=== PATIENT | female | born 1985 | race Two or more races ===

== ENCOUNTER 2017-02-24 12:36 | Emergency (ER) | payer MEDICAID ==
[2017-02-24 12:44] VITALS: BP 117/68; RESP 18; TEMP 98.6; O2SAT 96
--- NOTE | 2017-02-24 12:48 | EDPHY ---
H & P Stated Complaint: Bilat ear pain (worse L side) x 1 day. Denies fever. Time Seen by Provider: 02/24/17 12:42 HPI/ROS: CHIEF COMPLAINT:Bilateral ear pain HISTORY OF PRESENT ILLNESS: patient is a 31-year-old female who comes to the emergency department complaining of bilateral ear pain for the last 4 days. She has not had any drainage. She has not had a fever. She has not had sinus congestion or sore throat. No Headache. REVIEW OF SYSTEMS: Constitutional: denies: chills, fever, recent illness, recent injury EENTM: See HPI Respiratory: denies: cough, shortness of breath Cardiac: denies: chest pain, irregular heart rate, lightheadedness, palpitations Gastrointestinal/Abdominal: denies: abdominal pain, diarrhea, nausea, vomiting, blood streaked stools Genitourinary: denies: dysuria, frequency, hematuria, pain Musculoskeletal: denies: joint pain, muscle pain Skin: denies: lesions, rash, jaundice, bruising Neurological: denies: headache, numbness, paresthesia, tingling, dizziness, weakness Hematologic/Lymphatic: denies: blood clots, easy bleeding, easy bruising Immunologic/allergic: denies: HIV/AIDS, transplant EXAM: GENERAL: Well-appearing, well-nourished and in no acute distress. HEAD: Atraumatic, normocephalic. EYES: Pupils equal round and reactive to light, extraocular movements intact, sclera anicteric, conjunctiva are normal. ENT: TMs with mild purulent effusion, no erythema possible mild erythema to canal of left ear, nares patent, oropharynx clear without exudates. Moist mucous membranes. NECK: Normal range of motion, supple without lymphadenopathy or JVD. LUNGS: Breath sounds clear to auscultation bilaterally and equal. No wheezes rales or rhonchi. HEART: Regular rate and rhythm without murmurs, rubs or gallops. ABDOMEN: Soft, nontender, normoactive bowel sounds. No guarding, no rebound. No masses appreciated. BACK: No CVA tenderness, no spinal tenderness, step-offs or deformities EXTREMITIES: Normal range of motion, no pitting or edema. No clubbing or cyanosis. NEUROLOGICAL: Cranial nerves II through XII grossly intact. Normal speech, normal gait. 5/5 strength, normal movement in all extremities, normal sensation PSYCH: Normal mood, normal affect. SKIN: Warm, dry, normal turgor, no visible rashes or lesions. Source: Patient Exam Limitations: No limitations - Personal History LMP (Females 10-55): 1-7 Days Ago Current Tetanus Diphtheria and Acellular Pertussis (TDAP): Yes Tetanus Vaccine Date: within 10 years - Medical/Surgical History Hx Asthma: No Hx Chronic Respiratory Disease: No Hx Diabetes: No Hx Cardiac Disease: No Hx Renal Disease: No Hx Cirrhosis: No Hx Alcoholism: No Hx HIV/AIDS: No Hx Splenectomy or Spleen Trauma: No Other PMH: Night terrors, PTSD, fibromyalgia, Tonsillectomy - Family History Significant Family History: No pertinent family hx - Social History Smoking Status: Current every day smoker Alcohol Use: Sober Drug Use: None Constitutional: Initial Vital Signs Temperature (C) 37 C 02/24/17 12:37 Heart Rate 120 H 02/24/17 12:37 Respiratory Rate 18 02/24/17 12:37 Blood Pressure 117/68 02/24/17 12:37 O2 Sat (%) 96 02/24/17 12:37 O2 Delivery Mode Room Air Allergies/Adverse Reactions: No Known Allergies Allergy (Verified 02/24/17 12:44) Home Medications: Medication Instructions Recorded AZITHROMYCIN [Z-PACK] 250 mg PO DAILY #6 tab 02/24/17 Effexor 02/24/17 Klonopin 02/24/17 Lyrica 02/24/17 Multivitamin 02/24/17 Prazosin HCl 02/24/17 Seroquel 02/24/17 Medical Decision Making ED Course/Re-evaluation: the patient has a very mild otitis media possibly some otitis externa. I will start her on antibiotics and encouraged Afrin for decongestants. Encouraged her to continue taking ibuprofen. She did ask about stronger pain medication but I told her would not prescribe narcotics. Differential Diagnosis: Partial list of the Differential diagnosis considered include but were not limited to; Otitis media, otitis externa, sinusitis, upper respiratory tract infection and although unlikely based on the history and physical exam, I also considered pneumonia, meningitis, sepsis. Departure - Departure Disposition: Home, Routine, Self-Care Clinical Impression: Acute otitis media Qualifiers: Otitis media type: suppurative Laterality: bilateral Recurrence: not specified as recurrent Spontaneous tympanic membrane rupture: without spontaneous rupture Qualified Code(s): H66.003 - Acute suppurative otitis media without spontaneous rupture of ear drum, bilateral Condition: Fair Instructions: Otitis Media (ED) Additional Instructions: Use Afrin as a decongestant as we discussed. Referrals: RACHEL FIGUEROA [Other] - As per Instructions Prescriptions: AZITHROMYCIN [Z-PACK] 250 mg PO DAILY #6 tab
[2017-02-24 12:49] VITALS: PULSE 118
== END 2017-02-24 12:50 | disposition home or self-care (01) ==
LOC: CED 12:36
DX: H66.003 Acute suppurative otitis media without spontaneous rupture of ear drum, bilateral (principal); F17.200 Nicotine dependence, unspecified, uncomplicated

== ENCOUNTER 2017-03-02 11:19 | Emergency (ER) | payer MEDICAID ==
[2017-03-02] MEDS ORDERED: NS 1,000 ML IV ONE (11:27)
[2017-03-02 11:31] VITALS: TEMP 99.3
--- NOTE | 2017-03-02 11:47 | EDPHY ---
H & P Time Seen by Provider: 03/02/17 11:29 HPI/ROS: HPI Vaginal bleeding, lower abdominal cramping. 31-year-old female by private vehicle. . Currently sexually active. Last menstrual period was 2 weeks ago. She reports vaginal bleeding since yesterday. She reports she has gone through 6 tampons in that time. She reports that she has had lower abdominal cramping associated with this. She has taken 2400 mg of ibuprofen since yesterday as well. She called the nurse hotline today was told to come to the emergency department for evaluation. No fever. No back pain. She states that her periods are usually regular. No other complaints. ROS: Constitutional: No fever, no chills. No weakness. Eyes: No discharge. No changes in vision. ENT: No sore throat. No nasal congestion or rhinorrhea. Respiratory: No cough. No shortness of breath. Cardiac: No chest pain, no palpitations. Gastrointestinal: As above, no vomiting, no diarrhea. Genitourinary: No hematuria. No dysuria or increased frequency with urination. As above. Musculoskeletal: No back pain. No neck pain. No myalgias or arthralgias. Skin: No rashes. Neurological: No headache. No focal weakness or altered sensation. Past medical history: Night terrors, PTSD, anxiety, fibromyalgia, tonsillectomy. Social history: Physical Exam: General Appearance: Alert, no distress. This patient is responding to questions appropriately and in full sentences. This patient appears well- hydrated and well-nourished. Eyes: Pupils equal and round no pallor or injection. No lid edema, erythema or injection. Respiratory: There are no retractions, lungs are clear to auscultation with good air movement bilaterally. Cardiovascular: Regular rate and rhythm. No murmur. Gastrointestinal: Abdomen is soft with mild vague tenderness across her lower abdomen on palpation, no masses, bowel sounds normal. No focal tenderness at McBurney's point. No Walters sign. Neurological: Motor sensory function is grossly intact. Cranial nerves are normal. Gait is normal. Skin: Warm and dry, no rashes. Musculoskeletal: Neck is supple and nontender. Extremities are symmetrical. All joints range without pain or impingement. Psychiatric: No agitation. No depression. Database: EKG: Imaging: Pelvic ultrasound: Unremarkable study except for a 2.4 cm right ovarian cyst. No evidence of torsion. The endometrium is unremarkable. No other pathology. No free fluid. Results were discussed with staff radiologist Dr. Wayne Whitmore. Procedures: Emergency department course: IV placed. She was placed on a monitor. Vital signs reviewed and are normal. Urine specimen obtained. She was sent for a pelvic ultrasound. Blood work and urinalysis reviewed and are unremarkable. Patient is not significantly anemic. She was given 0.125 mg of Levsin for her cramping. I explained to her that because of her pain contract I could not give her narcotic pain medications. Repeat abdominal exam she is soft, nontender and nondistended. Plan will be to have her follow up with her primary care physician OBGYN on Monday for re-evaluation. I have discussed proper ibuprofen dosing. Return to emergency department precautions reviewed. All of her questions were answered. She feels comfortable going home. She was discharged in good condition. Differential Diagnosis: The differential diagnosis on this patient includes but is not limited to dysfunctional uterine bleeding, ectopic , threatened miscarriage, uterine fibroids. This represents a partial list of diagnoses considered. These considerations are based on history, physical exam, past history, reassessment and diagnostic testing. Smoking Status: Current every day smoker Constitutional: Initial Vital Signs Temperature (C) 37.4 C 03/02/17 11:29 Heart Rate 93 03/02/17 11:29 Respiratory Rate 18 03/02/17 11:29 Blood Pressure 116/85 H 03/02/17 11:29 O2 Sat (%) 95 03/02/17 11:29 O2 Delivery Mode Room Air Allergies/Adverse Reactions: No Known Allergies Allergy (Verified 03/02/17 11:27) Home Medications: Medication Instructions Recorded Effexor 02/24/17 Klonopin 02/24/17 Lyrica 02/24/17 Multivitamin 02/24/17 Prazosin HCl 02/24/17 Seroquel 02/24/17 Medical Decision Making - Diagnostics Imaging Results: Imaging Impressions Pelvic/Renal Ultrasound 03/02/17 11:28 Impression: 1. Normal appearance of the uterus (including the myometrium and endometrium). 2. There is a mildly complex 2.4 cm right ovarian cyst, with no evidence of torsion, but a trace amount of free fluid in the pelvic cul-de-sac. Findings were discussed with Bob Layne MD at 12:07, on 03/02/2017. . - Data Points Laboratory Results: Laboratory Results 03/02/17 11:25 03/02/17 03/02/17 03/02/17 11:25 11:25 11:25 WBC 4.78 10^3/uL 10^3/uL (3.80-9.50) RBC 4.85 10^6/uL 10^6/uL (4.18-5.33) Hgb 15.2 g/dL g/dL (12.6-16.3) Hct 43.1 % % (38.0-47.0) MCV 88.9 fL fL (81.5-99.8) MCH 31.3 pg pg (27.9-34.1) MCHC 35.3 g/dL g/dL (32.4-36.7) RDW 14.1 % % (11.5-15.2) Plt Count 241 10^3/uL 10^3/uL (150-400) MPV 9.8 fL fL (8.7-11.7) Neut % (Auto) 52.1 % % (39.3-74.2) Lymph % (Auto) 40.0 % % (15.0-45.0) [place] % (Auto) 7.1 % % (4.5-13.0) Eos % (Auto) 0.0 % L % (0.6-7.6) Baso % (Auto) 0.4 % % (0.3-1.7) Nucleat RBC Rel Count 0.0 % % (0.0-0.2) Absolute Neuts (auto) 2.49 10^3/uL 10^3/uL (1.70-6.50) Absolute Lymphs (auto) 1.91 10^3/uL 10^3/uL (1.00-3.00) Absolute Monos (auto) 0.34 10^3/uL 10^3/uL (0.30-0.80) Absolute Eos (auto) 0.00 10^3/uL L 10^3/uL (0.03-0.40) Absolute Basos (auto) 0.02 10^3/uL 10^3/uL (0.02-0.10) Absolute Nucleated RBC 0.00 10^3/uL 10^3/uL (0-0.01) Immature Gran % 0.4 % % (0.0-1.1) Immature Gran # 0.02 10^3/uL 10^3/uL (0.00-0.10) Beta HCG, Qual NEGATIVE Urine Color YELLOW Urine Appearance CLEAR Urine pH 7.0 (5.0-7.5) Ur Specific [place] 1.010 (1.002-1.030) Urine Protein NEGATIVE (NEGATIVE) Urine Ketones NEGATIVE (NEGATIVE) Urine Blood 3+ H (NEGATIVE) Urine Nitrate NEGATIVE (NEGATIVE) Urine Bilirubin NEGATIVE (NEGATIVE) Urine Urobilinogen 0.2 EU EU (0.2-1.0) Ur Leukocyte Esterase NEGATIVE (NEGATIVE) Urine RBC 5-10 /hpf H /hpf (0-3) Urine WBC 1-3 /hpf /hpf (0-3) Ur Epithelial Cells 2+ /lpf H /lpf (NONE-1+) Urine Bacteria 1+ /hpf H /hpf (NONE SEEN) Urine Glucose NEGATIVE (NEGATIVE) Medications Given: Discontinued Medications Hyoscyamine Sulfate (Levsin, Hyomax-Sl) 0.125 mg PO EDNOW ONE Stop: 03/02/17 12:07 Last Admin: 03/02/17 12:10 Dose: 0.125 mg Sodium Chloride (Ns) 1,000 mls @ 0 mls/hr IV ONCE ONE; Wide Open PRN Reason: Protocol Stop: 03/02/17 11:28 Last Admin: 03/02/17 11:30 Dose: 1,000 mls Departure - Departure Disposition: Home, Routine, Self-Care Clinical Impression: Dysfunctional uterine bleeding Condition: Good Instructions: Dysfunctional Uterine Bleeding (ED) Additional Instructions: Read and follow provided instructions. Follow-up with your primary care physician or OBGYN in 1-2 days for re- evaluation. Ibuprofen dosin mg every 6 hours with meals for the next 3 days only. Return to the emergency department for worsening bleeding, pain, fever, vomiting or other serious concerns. Referrals: [facility] [Other] - As per Instructions Maylin Martinez MD [Medical Doctor] - As per Instructions
[2017-03-02 11:50] LABS: % IMMATURE GRANULYOCYTES 0.4 % (0.0-1.1); ABSOLUTE IMMATURE GRANULOCYTES 0.02 10^3/uL (0.00-0.10); ADD DIFF? NO; ADD MORPH? NO; ADD SCAN? NO; ATYPICAL LYMPHOCYTE FLAG 20 (0-99); FRAGMENT RBC FLAG 0 (0-99); HEMATOCRIT 43.1 % (38.0-47.0); HEMOGLOBIN 15.2 g/dL (12.6-16.3); LEFT SHIFT FLG 0 (0-99); LIPEMIA HEMOLYSIS FLAG 90 (0-99); MEAN CELL HEMOGLOBIN 31.3 pg (27.9-34.1); MEAN CELL HEMOGLOBIN CONCENTR. 35.3 g/dL (32.4-36.7); MEAN CELL VOLUME 88.9 fL (81.5-99.8); MEAN PLATELET VOLUME 9.8 fL (8.7-11.7); PLATELET CLUMPS FLAG 0 (0-99); PLATELET COUNT 241 10^3/uL (150-400); RED BLOOD CELL COUNT 4.85 10^6/uL (4.18-5.33); RED CELL DISTRIBUTION WIDTH 14.1 % (11.5-15.2)
[2017-03-02 11:51] LABS: COLOR YELLOW; LEUKOCYTE ESTERASE,URINE NEGATIVE (NEGATIVE); NITRITE,URINE NEGATIVE (NEGATIVE)
[2017-03-02 12:03] LABS: BACTERIA 1+ /hpf (NONE SEEN)
[2017-03-02] MEDS ORDERED: HYOSCYAMINE SULFATE 0.125 MG TAB PO ONE (12:06)
[2017-03-02 12:44] VITALS: BP 100/65; PULSE 72; RESP 20; O2SAT 99
== END 2017-03-02 12:35 | disposition home or self-care (01) ==
LOC: CED 11:19
DX: N93.8 Other specified abnormal uterine and vaginal bleeding (principal); F17.200 Nicotine dependence, unspecified, uncomplicated
CPT/HCPCS: 76856-PO; 81003-PO; 81015-PO; 84703-PO; 85025-PO

== ENCOUNTER 2017-03-03 14:23 | Emergency (ER) | payer MEDICAID ==
[2017-03-03 14:33] VITALS: TEMP 98.4
[2017-03-03] MEDS ORDERED: KETOROLAC 30 MG/1 ML SDV IM ONE (14:55)
--- NOTE | 2017-03-03 15:01 | EDPHY ---
H & P Time Seen by Provider: 03/03/17 14:30 HPI/ROS: CHIEF COMPLAINT: Pelvic cramping History by patient HISTORY OF PRESENT ILLNESS: 31-year-old woman with history of fibromyalgia presents complaining of ongoing vaginal bleeding and cramping. Patient was seen for the same thing yesterday and had extensive workup that showed no evidence of , normal hemoglobin and ultrasound showed no ovarian cyst but no evidence of torsion or other pathology. Because of her fibromyalgia she is followed at a pain clinic and is not prescribed any opiates. She was recommended to take ibuprofen 600 mg 4 times a day however she says she has taken only a dose of 2 or 300 mg around noon today and that is not helping. She is also still having ongoing vaginal bleeding for which she is using pads but it is not heavy. Patient quit taking control pills 6 weeks ago and this is the 2nd episode of vaginal bleeding since she stopped those. She is wondering if we can give her some pain medicines that she can go home with. REVIEW OF SYSTEMS: As in HPI, and all other systems reviewed and are negative Smoking Status: Current every day smoker Physical Exam: General Appearance: Alert, non-ill appearing. Eyes: Pupils equal and round no pallor or injection. ENT, Mouth: Mucous membranes moist. Respiratory: Normal, effort, There are no retractions, lungs are clear to auscultation. Cardiovascular: Regular rate and rhythm. Gastrointestinal: Abdomen is soft and nontender, no masses, bowel sounds normal. Back: No CVA tenderness, no bony tenderness Neurological: Awake, alert and oriented x 3, no pronator drift, normal gait, no pronator drift Skin: Warm and dry, no rashes. Musculoskeletal: Neck is supple nontender. Extremities are symmetrical, full range of motion. Psychiatric: Patient has normal affect, there is no agitation. Constitutional: Initial Vital Signs Temperature (C) 36.9 C 03/03/17 14:25 Heart Rate 79 03/03/17 14:25 Respiratory Rate 16 03/03/17 14:25 Blood Pressure 103/63 03/03/17 14:25 O2 Sat (%) 100 03/03/17 14:25 O2 Delivery Mode Room Air Allergies/Adverse Reactions: No Known Allergies Allergy (Verified 03/03/17 14:33) Home Medications: Medication Instructions Recorded Effexor 02/24/17 Klonopin 02/24/17 Multivitamin 02/24/17 Prazosin HCl 02/24/17 Cymbalta 03/03/17 MDM/Departure - MDM Imaging: I viewed and interpreted images myself ED Course/Re-evaluation: 31-year-old woman presents complaining of ongoing menstrual cramping and vaginal bleeding after an extensive workup yesterday. Patient has been taking inadequate doses of ibuprofen. We discussed how nonsteroidal anti-inflammatory pain medicine has specific antiprostaglandin effects and that can help her. We also discussed the risks of opiates for chronic pain and conjunction with benzodiazepines that she takes regularly. I also explained that she needs to take this 600 mg 4 times a day. I offered to start her on new control pills however she declined and preferred to get this prescribed by her regular OBGYN in [place]. She was given a dose of IM ketorolac. And discharged home in stable condition. - Depart Disposition: Home, Routine, Self-Care Clinical Impression: Dysmenorrhea, unspecified Condition: Good Instructions: Dysmenorrhea (ED) Additional Instructions: You were seen by Dr. Ariadna Frank today. Take ibuprofen 600 mg (3 x 200 mg tablets) every 6 hours for the next 48 hours for your menstrual cramping and pain. Try also heating pad or hot water bottles. You may take acetaminophen 500 mg every 4 hours for pain in addition to the ibuprofen if you need it. Return for any worsening or new concerns. Referrals: PEGGY PEREZ [Other] - As per Instructions
[2017-03-03 15:14] VITALS: BP 110/73; PULSE 82; RESP 18; O2SAT 95
== END 2017-03-03 15:13 | disposition home or self-care (01) ==
LOC: CED 14:23
DX: N94.6 Dysmenorrhea, unspecified (principal); F17.200 Nicotine dependence, unspecified, uncomplicated
CPT/HCPCS: J1885

== ENCOUNTER 2017-06-15 15:34 | Emergency (ER) | payer MEDICAID ==
--- NOTE | 2017-06-15 16:14 | EDPHY ---
H & P Stated Complaint: Had IUD inserted last week; cramping ever since;wants US Time Seen by Provider: 06/15/17 15:42 HPI/ROS: CHIEF COMPLAINT: Abdominal pain after IUD placement HISTORY OF PRESENT ILLNESS: This patient is a 32 year old female complaining of severe abdominal cramping secondary to IUD placement last Monday, nine days ago. She has a history of difficult menstrual cycles, so her primary care provider suggested she try a hormonal IUD to reduce her symptoms. She states she felt intense pain during the placement and nearly fainted. Today, she is still having painful cramping, which radiates towards her hips. She has tried heating pads and Tylenol. She has also noted yellowish vaginal discharge, which she states is abnormal for her. She is not currently sexually active. She denies vomiting, diarrhea, hematuria, blood in her stool, or other associated symptoms. She would like removal of the IUD. REVIEW OF SYSTEMS: A 10 point review of systems was performed and is negative with the exception of the elements mentioned in the history of present illness. - Personal History LMP (Females 10-55): IUD In Place Current Tetanus Diphtheria and Acellular Pertussis (TDAP): Yes Tetanus Vaccine Date: within 10 years - Medical/Surgical History PMH: PTSD, Fibromyalgia, Tonsillectomy, IBS, Anxiety Hx Asthma: No Hx Chronic Respiratory Disease: No Hx Diabetes: No Hx Cardiac Disease: No Hx Renal Disease: No Hx Cirrhosis: No Hx Alcoholism: No Hx HIV/AIDS: No Hx Splenectomy or Spleen Trauma: No Other PMH: Night terrors, PTSD, fibromyalgia, Tonsillectomy, IBS, anxiety - Social History Smoking Status: Current every day smoker Additional Social History: Daily tobacco use. Lives in [place]. Single. - Physical Exam Exam: General Appearance: Alert, no distress Eyes: Pupils equal and round, no conjunctival pallor or injection ENT, Mouth: Mucous membranes moist Neck: Normal inspection Respiratory: Lungs are clear to auscultation Cardiovascular: Regular rate and rhythm Gastrointestinal: Mild suprapubic tenderness. Abdomen is soft. Neurological: A&O, nonfocal, normal gait Skin: Warm and dry, no rash Extremities: Nontender, no pedal edema Psychiatric: Mood and affect normal Constitutional: Initial Vital Signs Temperature (C) 36.7 C 06/15/17 15:35 Heart Rate 107 H 06/15/17 15:35 Respiratory Rate 18 06/15/17 15:35 Blood Pressure 100/76 06/15/17 15:35 O2 Sat (%) 99 06/15/17 15:35 O2 Delivery Mode Room Air Allergies/Adverse Reactions: No Known Allergies Allergy (Verified 06/15/17 15:35) Home Medications: Medication Instructions Recorded Klonopin 02/24/17 Multivitamin 02/24/17 Prazosin HCl 02/24/17 MILNACIPRAN HCL [Savella 50 mg] 50 mg PO 06/15/17 Medical Decision Making ED Course/Re-evaluation: 32 year old female presents with abdominal pain and cramping secondary to IUD placement nine days ago. Exam revealed mild suprapubic tenderness. Discussed ultrasound vs. removal with the patient. She would like to proceed with IUD removal. Pelvic exam performed. Scant amount of brownish discharge present. IUD removed with ring-tipped forceps. The patient tolerated the procedure well. Administered 650mg PO Tylenol for pain relief. Plan to discharge home in good condition. She will follow up with her primary care provider. Return precautions discussed. She is comfortable with this plan. Differential Diagnosis: Differential diagnosis includes though it is not limited to ectopic , ovarian cyst, ovarian torsion, PID, UTI, appendicitis. - Data Points Medications Given: Discontinued Medications Acetaminophen (Tylenol) 650 mg PO EDNOW ONE Stop: 06/15/17 16:55 Last Admin: 06/15/17 17:07 Dose: 650 mg Departure - Departure Disposition: Home, Routine, Self-Care Clinical Impression: Remove/insert IUD Abdominal pain Qualifiers: Abdominal location: lower abdomen, unspecified Qualified Code(s): R10.30 - Lower abdominal pain, unspecified Condition: Good Instructions: Abdominal Pain (ED) Additional Instructions: 1. Follow up with your primary care provider in 2-3 days. 2. Return to the emergency department for worsening pain, abnormally heavy bleeding, fainting, or other worsening of condition. 3. You may take 650mg Tylenol every 4-6 hours as needed for pain relief. Referrals: DR INDIRA [Other] - As per Instructions Report Scribed for: Alva Washburn Report Scribed by: Radha Alvarado Date of Report: 06/15/17 Time of Report: 16:19 Physician Review and Approval Statement: 06/15/17 16:19 Portions of this note were transcribed by a director medical writing. I personally performed a history, physical exam, medical decision making, and confirmed accuracy of information the transcribed note.
[2017-06-15] MEDS ORDERED: ACETAMINOPHEN 325 MG TAB PO ONE (16:54)
[2017-06-15 17:18] VITALS: BP 109/72; PULSE 89; RESP 17; TEMP 97.5; O2SAT 98
== END 2017-06-15 17:10 | disposition home or self-care (01) ==
DX: T83.84XA Pain due to genitourinary prosthetic devices, implants and grafts, initial encounter (principal); F17.200 Nicotine dependence, unspecified, uncomplicated; Y73.2 Prosthetic and other implants, materials and accessory gastroenterology and urology devices associated with adverse incidents